=== PATIENT | male | born 1950 | race Caucasian/White ===

== ENCOUNTER 2017-03-05 15:11 | Emergency (ER) | payer MEDICAID | END 2017-03-05 17:35 | disposition home or self-care (01) | LOC: FTE 15:11 | DX: Z76.0 Encounter for issue of repeat prescription (principal); E11.9 Type 2 diabetes mellitus without complications; Z79.84 Long term (current) use of oral hypoglycemic drugs | CPT/HCPCS: 82962; 99281 ==

== ENCOUNTER 2017-04-15 19:52 | Emergency (ER) | payer MEDICAID | END 2017-04-15 20:52 | disposition home or self-care (01) | LOC: FTE 19:52 | DX: Z76.0 Encounter for issue of repeat prescription (principal); E11.9 Type 2 diabetes mellitus without complications; F17.210 Nicotine dependence, cigarettes, uncomplicated; Z79.84 Long term (current) use of oral hypoglycemic drugs | CPT/HCPCS: 99281; Z7502 ==

== ENCOUNTER 2017-05-15 10:30 | Emergency (ER) | payer MEDICAID | END 2017-05-15 12:38 | disposition home or self-care (01) | LOC: E/R 10:30 | DX: E11.65 Type 2 diabetes mellitus with hyperglycemia (principal); Z87.891 Personal history of nicotine dependence; Z79.84 Long term (current) use of oral hypoglycemic drugs | CPT/HCPCS: 82962; 99281 ==